=== PATIENT | female | born 1965 | race Caucasian/White ===

== ENCOUNTER 2025-06-19 09:34 | Outpatient (CLI) | payer BC, SELFPAY | END 2025-06-19 09:35 | disposition home or self-care (01) | PROVIDERS: Visit Provider Family Medicine | DX: M54.16 Radiculopathy, lumbar region (principal); M51.369 Other intervertebral disc degeneration, lumbar region without mention of lumbar back pain or lower extremity pain | CPT/HCPCS: 62323; J0702; Q9966 ==